=== PATIENT | male | born 1945 | race Caucasian/White ===

== ENCOUNTER → 2017-06-19 | Outpatient (CLI) | payer OTHER, MEDICARE ==
[~2017-06-19] MED LIST: AMOX TR-K CLV1 EACH PO; ASPIRIN325; COUMADIN 5 MG TA5 M1 PO; LIPITOR40 MG PO; METOPIRONE250 MG PO; MUCINEX600 MG; PRAVACHOL40 MG; TOPROL XL100 MG PO
== END ==
LOC: MRI 08:50
DX: M47.896 Other spondylosis, lumbar region (principal); M48.061 Spinal stenosis, lumbar region without neurogenic claudication

== ENCOUNTER 2017-10-10 13:49 | Emergency (ER) | payer OTHER, MEDICARE ==
[~2017-10-10] VITALS: Ht 167.6 cm; Wt 86.2 kg
[~2017-10-10 13:49] MED LIST changes: +AMOXICILLIN 50500 MG PO; -ASPIRIN325; +ASPIRIN325 PO; +COUMADIN 2.5MG2.5 M1 PO; +LISINOPRIL5 MG PO; -MUCINEX600 MG; +MUCINEX600 MG PO; +NASONEX17 GM NASAL; +NEURONTIN 300300 M1 PO; -PRAVACHOL40 MG; +PRAVACHOL40 MG PO
[2017-10-10 14:52] LABS: HEMOGLOBIN 14.8 gm/dL (14.0-18.0); MCH 32.9 pg (26.0-34.0); MCHC 34.4 g/dL (28.0-37.0); MCV 95.7 fL (80.0-100.0); RBC 4.49 mil/uL (4.50-6.00); RDW 13.1 % (10.5-14.5); WBC 3.7 thou/uL (4.0-11.0)
[2017-10-10 15:12] LABS: INR 2.5; PROTIME 25.4 Seconds (9.3-11.4)
[2017-10-10 15:54] VITALS: BP 176/66
[2017-11-11] MEDS ORDERED: NEURONTIN 300300 M1 PO (09:48)
[2017-11-28] MEDS ORDERED: NEURONTIN600 MG PO (09:24)
[2017-11-28] MEDS ORDERED: LOPRESSOR50 PO (09:25)
[2017-11-28] MEDS ORDERED: ENOXAPARIN60 MG/0.1 SUBQ (09:29)
== END 2017-10-10 15:56 | disposition home or self-care (01) ==
LOC: ER 13:49
PROVIDERS: Physician Assistant
DX: R04.0 Epistaxis (principal); Z87.891 Personal history of nicotine dependence

== ENCOUNTER 2017-10-27 10:19 | Inpatient (IN) | payer OTHER, MEDICARE ==
[~2017-10-27] VITALS: Ht 152.4 cm; Wt 59.0 kg
[2017-10-27 10:25] VITALS: BP 117/73
[2017-10-27] MEDS ORDERED: NEURONTIN600 MG PO (10:42)
[2017-10-27] MEDS ORDERED: VITAMINC500 PO (10:44)
[2017-10-27] MEDS ORDERED: FISH OIL PO (10:44)
[2017-10-27] MEDS ORDERED: CALCIUM PO (10:44)
[2017-10-27 10:53] LABS: ABSOLUTE NEUTROPHILS 8.8 thou/uL (1.4-8.2); BASOPHILS 0.5 % (0.0-2.0); EOSINOPHILS 0.9 % (0.0-3.0); HEMOGLOBIN 14.8 gm/dL (14.0-18.0); LYMPHOCYTES 6.4 % (24.0-44.0); MCH 33.3 pg (26.0-34.0); MCHC 35.1 g/dL (28.0-37.0); MCV 94.8 fL (80.0-100.0); MONOCYTES 9.9 % (1.0-8.0); PLATELET COUNT 180 thou/uL (150-400); POLYS 82.3 % (36.0-66.0); RBC 4.43 mil/uL (4.50-6.00); WBC 10.7 thou/uL (4.0-11.0)
[2017-10-27 10:56] LABS: CALCIUM 8.9 mg/dL (8.5-10.1); CREATININE 0.8 mg/dL (0.7-1.3); POTASSIUM 4.1 mmol/L (3.5-5.1)
[2017-10-27 11:01] LABS: ALBUMIN 3.4 g/dL (3.4-5.0); INR 2.7; PROTIME 27.4 Seconds (9.3-11.4); TOTAL BILIRUBIN 1.8 mg/dL (<0.1-1.0); TOTAL PROTEIN 7.7 g/dL (6.4-8.2)
[2017-10-27 11:32] LABS: URINE BILIRUBIN NEGATIVE (Negative); URINE BLOOD NEGATIVE (Negative); URINE CLARITY CLEAR; URINE COLOR YELLOW; URINE GLUCOSE-RANDOM* NEGATIVE (Negative); URINE KETONES TRACE (Negative); URINE LEUKOCYTES NEGATIVE (Negative); URINE NITRITE NEGATIVE (Negative); URINE PROTEIN (DIPSTICK) NEGATIVE (Negative); URINE SPECIFIC GRAVITY <= 1.005 (1.005-1.035); URINE UROBILINOGEN >= 8.0 E.U./dl (0.2-1.0)
[2017-10-27 13:22] VITALS: BP 137/58
[2017-10-27 13:45] VITALS: BP 137/58
[2017-10-27 15:20] VITALS: BP 122/55
[2017-10-27 19:15] VITALS: BP 145/63
[2017-10-28 06:13] LABS: HEMATOCRIT 40.7 % (42.0-52.0); MCH 32.9 pg (26.0-34.0); MCHC 34.4 g/dL (28.0-37.0); MCV 95.8 fL (80.0-100.0); RBC 4.25 mil/uL (4.50-6.00); RDW 13.1 % (10.5-14.5); WBC 7.7 thou/uL (4.0-11.0)
[2017-10-28 06:50] LABS: INR 2.2; PROTIME 21.9 Seconds (9.3-11.4)
[2017-10-28 07:49] VITALS: BP 144/80
[2017-10-28 16:22] VITALS: BP 168/71
[2017-10-28 19:56] VITALS: BP 152/79
[2017-10-29 04:19] VITALS: BP 166/84
[2017-10-29 08:00] VITALS: BP 189/95
[2017-10-29] MEDS ORDERED: AUGMENTIN 875-1 EACH PO (08:06)
[2017-10-29 09:31] LABS: HEMATOCRIT 41.6 % (42.0-52.0); HEMOGLOBIN 14.2 gm/dL (14.0-18.0); MCH 32.8 pg (26.0-34.0); MCHC 34.2 g/dL (28.0-37.0); MCV 95.9 fL (80.0-100.0); RBC 4.34 mil/uL (4.50-6.00); RDW 13.1 % (10.5-14.5); WBC 5.6 thou/uL (4.0-11.0)
[2017-10-29 09:41] LABS: INR 1.7; PROTIME 17.3 Seconds (9.3-11.4)
[2017-10-29 11:20] VITALS: BP 189/95
[2017-11-11] MEDS ORDERED: NEURONTIN 300300 M1 PO (09:48)
[2017-11-28] MEDS ORDERED: NEURONTIN600 MG PO (09:24)
[2017-11-28] MEDS ORDERED: LOPRESSOR50 PO (09:25)
[2017-11-28] MEDS ORDERED: ENOXAPARIN60 MG/0.1 SUBQ (09:29)
== END 2017-10-29 13:10 | disposition home or self-care (01) | DRG 393 ==
LOC: ER 10:19 → EROBS 12:44 → 4W 12:44 → ENTRNSPT 10-29 12:58 → EDTRNSPTSTS 10-29 12:59 → 4W 10-29 13:10
PROVIDERS: Family Medicine; Nurse Practitioner Family; Surgery
DX: K35.80 Unspecified acute appendicitis (principal); E43 Unspecified severe protein-calorie malnutrition; E87.1 Hypo-osmolality and hyponatremia; I10 Essential (primary) hypertension; E78.5 Hyperlipidemia, unspecified; E80.6 Other disorders of bilirubin metabolism; Z79.82 Long term (current) use of aspirin; Z79.899 Other long term (current) drug therapy; Z87.891 Personal history of nicotine dependence; Z95.2 Presence of prosthetic heart valve; Z68.25 Body mass index [BMI] 25.0-25.9, adult
CPT/HCPCS: 10045

== ENCOUNTER → 2017-11-11 | Outpatient (CLI) | payer OTHER, MEDICARE ==
[~2017-11-11] VITALS: Ht 157.5 cm; Wt 61.7 kg
[~2017-11-11] MED LIST changes: +ASPIRIN325; -ASPIRIN325 PO; +AUGMENTIN 875-1 EACH PO; +CALCIUM PO; +FISH OIL PO; +MUCINEX600 MG; -MUCINEX600 MG PO; +NEURONTIN600 MG PO; +PRAVACHOL40 MG; -PRAVACHOL40 MG PO; +VITAMINC500 PO
--- NOTE | ~2017-11-11 | HPC ---
[facility] [address] [place] [address] PAIN MANAGEMENT CONSULTATION Name: CHRISTO FLOWER [facility] #[id number] Admission: 11/11/17 Attend Phys: Carlos Owens DO Discharge: Date of : 41 Report #: [id number] THIS REPORT FOR: //name// CC: Carlos Jo MD DATE OF SERVICE: 11/11/2017 REFERRING PHYSICIAN: Sam Jo MD CHIEF COMPLAINT: Low back pain and bilateral lower extremity pain with paresthesias. HISTORY OF PRESENT ILLNESS: As you know, the patient is a 72-year-old male who began experiencing low back pain and bilateral lower extremity pain that presented in 04/2017. He denied injury or trauma that may have led to symptom development. He was seen in consultation per the request of Dr. Jo on 07/09/2017. At that time, he was diagnosed with symptomatic lumbar radiculopathy and spinal stenosis of the lumbar spine. The spinal stenosis is multifactorial due to facet changes, neural foraminal stenosis and disk bulging. We had to begin the patient on medication, which has been quite beneficial. He returns today in followup visit requesting refill of his gabapentin. Currently, he is taking 900 mg twice a day with good efficacy, no side effects of somnolence, decreased mental acuity, disorientation and confusion. He returns requesting refill on medications. ALLERGIES: No known drug allergies. CURRENT MEDICATIONS: Ascorbic acid, cyanocobalamin, gabapentin, montelukast sodium, lisinopril, warfarin, guaifenesin, pravastatin, metoprolol and aspirin. SOCIAL HISTORY: The patient denies tobacco, IV or illicit drug use. Admits to three alcoholic beverages per day. 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 He is unaccompanied today. IMAGING: No new imaging available. PQRS: The patient has known osteoarthritis. No rheumatoid arthritis. He rates the pain intensity today at 3/10. He is not a fall risk and has not had a fall in the last 3 months. He is on blood thinners in the form of warfarin. He is treated for hypertension. He has not been on opioids for an extended period of time. He has a moderate risk for opioid abuse. Functional assessment/pain interference scale is 34/70 indicating moderate interference. [address] [address] PAIN MANAGEMENT CONSULTATION Name: CHRISTO FLOWER Room #: REG LIZETTE Herrmann#: [id number] Admission: 11/11/17 Attend Phys: Carlos Owens DO Discharge: Date of : 41 Report #: [id number] PHYSICAL EXAMINATION: VITAL SIGNS: Blood pressure 121/88, pulse 62, respiratory rate 16 and unlabored, the patient 99% on room air. Height 5 feet 2 inches tall, weight 136 pounds and BMI calculated 24.9. GENERAL: Well-developed, well-nourished, well-hydrated, 72-year-old male. He appears stated age. Pain score is rated 3/10. HEENT: Normocephalic and atraumatic. Pupils are equal, round and reactive to light. EXTREMITIES: Show no clubbing, no cyanosis and no edema. MUSCULOSKELETAL: Lower extremity strength equal and symmetrical, 5/5, muscle bulk and tone equal and symmetrical. Seated straight leg raising is positive. Supine straight leg raising is positive. Fabere's test negative. Modified Gaenslen's positive for axial low back pain. Ankle clonus is negative. Babinski is negative. ASSESSMENT: 1. Symptomatic lumbar radiculopathy. 2. Spinal stenosis of the lumbar spine. 3. Displacement of the lumbar intervertebral disk with radiculopathy. 4. Lumbosacral spondylosis with radiculopathy. 5. Neural foraminal stenosis of the lumbar spine. 6. Facet arthropathy of the lumbar spine. 7. Degeneration of the lumbar spine. 8. Chronic intractable pain. PLAN: 1. The patient returns today in followup visit noting good efficacy with gabapentin therapy. He takes 900 mg twice a day and does note good and prolonged benefit. He apparently stopped his gabapentin for a couple of days during a hospitalization for appendicitis. He noted pain intensity returned. He restarted the gabapentin. His pain intensity dropped to a level of 3/10, which is tolerable for him. He is denying side effects of somnolence, decrease mental acuity, disorientation, confusion with the use of medication and wishes to continue therapy. 2. The patient was provided prescription of gabapentin 300 mg dose 3 tabs p.o. b.i.d., #180 with 5 refills, 6 months' worth of medication. 3. The patient will return to our clinic on an as needed basis for possible interventional treatments to address any residual lumbar radicular symptoms secondary to spinal stenosis. Otherwise, we will see him back in followup visit in 6 months for medication management. By: 1021 1230 Carlos Owens DO /nt
[2017-11-11 09:36] VITALS: BP 121/88
== END ==
LOC: PAIN 10-28 14:15
DX: M47.27 Other spondylosis with radiculopathy, lumbosacral region (principal); G89.29 Other chronic pain

== ENCOUNTER → 2017-11-18 | Outpatient (CLI) | payer OTHER, MEDICARE ==
[2017-11-18 09:20] LABS: CREATININE 0.7 mg/dL (0.7-1.3)
== END ==
LOC: CAT 05:55
PROVIDERS: Surgery
DX: K37 Unspecified appendicitis (principal); K44.9 Diaphragmatic hernia without obstruction or gangrene

== ENCOUNTER 2017-12-01 05:31 | Observation (INO) | payer OTHER, MEDICARE ==
[~2017-12-01] VITALS: Ht 157.5 cm; Wt 61.2 kg
[~2017-12-01 05:31] MED LIST changes: -ASPIRIN325; +ASPIRIN325 PO; +ENOXAPARIN60 MG/0.1 SUBQ; +LOPRESSOR50 PO; -MUCINEX600 MG; +MUCINEX600 MG PO; -PRAVACHOL40 MG; +PRAVACHOL40 MG PO
[2017-12-01 07:17] LABS: HEMATOCRIT 39.4 % (42.0-52.0); HEMOGLOBIN 13.5 gm/dL (14.0-18.0)
[2017-12-01 07:32] LABS: APTT 28.6 Seconds (24.5-32.8); PROTIME 10.3 Seconds (9.3-11.4)
[2017-12-01 07:38] VITALS: BP 150/70
[2017-12-01 11:30] VITALS: BP 143/62
[2017-12-01 16:00] VITALS: BP 167/63
[2017-12-01 19:05] VITALS: BP 160/66
[2017-12-02 03:07] VITALS: BP 145/60
[2017-12-02 07:22] VITALS: BP 124/63
[2017-12-02] MEDS ORDERED: FLOMAX0.4 MG PO (08:35)
[2017-12-02] MEDS ORDERED: ZOFRAN4 MG PO (08:35)
[2017-12-02] MEDS ORDERED: HYDROCODON-ACE1 EAC7 PO (08:35)
[2017-12-02 10:02] VITALS: BP 124/63
== END 2017-12-02 14:53 | disposition home or self-care (01) ==
LOC: OR 05:31 → TBA 05:31 → 4W 11:27 → OR 11:56 → ENTRNSPT 12-02 13:41 → EDTRNSPTSTS 12-02 13:43 → 4W 12-02 14:53
PROVIDERS: Surgery
DX: K35.80 Unspecified acute appendicitis (principal); E78.5 Hyperlipidemia, unspecified; R33.9 Retention of urine, unspecified; G47.30 Sleep apnea, unspecified; Z86.73 Personal history of transient ischemic attack (TIA), and cerebral infarction without residual deficits; Z87.891 Personal history of nicotine dependence
CPT/HCPCS: 50010; 50101; 50249; 50411; 50555; 50558; 50739; 50740; 50962; 51975; 52265; 53307; 53310; 54022; 54118; 56525; 56526; 62110; 62900; 70005

== ENCOUNTER 2018-02-18 07:05 | Emergency (ER) | payer OTHER, MEDICARE ==
[~2018-02-18] VITALS: Ht 157.5 cm; Wt 59.0 kg
[~2018-02-18 07:05] MED LIST changes: +FLOMAX0.4 MG PO; +HYDROCODON-ACE1 EAC7 PO; +ZOFRAN4 MG PO
[2018-02-18 07:58] LABS: HEMOGLOBIN 13.9 gm/dL (14.0-18.0); MCH 33.4 pg (26.0-34.0); MCHC 34.8 g/dL (28.0-37.0); RBC 4.17 mil/uL (4.50-6.00); WBC 4.1 thou/uL (4.0-11.0)
[2018-02-18 08:15] LABS: INR 3.8
== END 2018-02-18 08:42 | disposition home or self-care (01) ==
LOC: ER 07:05
PROVIDERS: Emergency Medicine
DX: K91.840 Postprocedural hemorrhage of a digestive system organ or structure following a digestive system procedure (principal); I10 Essential (primary) hypertension; E78.5 Hyperlipidemia, unspecified; E78.00 Pure hypercholesterolemia, unspecified; G47.30 Sleep apnea, unspecified; Z85.828 Personal history of other malignant neoplasm of skin; Z87.891 Personal history of nicotine dependence

== ENCOUNTER 2018-05-19 16:24 | Emergency (ER) | payer OTHER, MEDICARE ==
[~2018-05-19] VITALS: Ht 157.5 cm; Wt 59.9 kg
[2018-05-19] MEDS ORDERED: CAL-MAG COMPLE1 EACH PO (16:43)
[2018-05-19] MEDS ORDERED: NORFLEX100 MG PO (17:58)
== END 2018-05-19 18:12 | disposition home or self-care (01) ==
LOC: ER 16:24
DX: R07.89 Other chest pain (principal); M25.571 Pain in right ankle and joints of right foot; I10 Essential (primary) hypertension; E78.00 Pure hypercholesterolemia, unspecified; G47.30 Sleep apnea, unspecified; Z79.01 Long term (current) use of anticoagulants; Z85.828 Personal history of other malignant neoplasm of skin; Z79.899 Other long term (current) drug therapy; Z87.891 Personal history of nicotine dependence; V49.09XA Driver injured in collision with other motor vehicles in nontraffic accident, initial encounter; Y93.89 Activity, other specified; Y92.410 Unspecified street and highway as the place of occurrence of the external cause; Y99.8 Other external cause status

== ENCOUNTER 2018-08-10 07:03 | Emergency (ER) | payer OTHER, MEDICARE ==
[~2018-08-10] VITALS: Ht 157.5 cm; Wt 61.2 kg
[~2018-08-10 07:03] MED LIST changes: +CAL-MAG COMPLE1 EACH PO; +NORFLEX100 MG PO
[2018-08-10 07:45] LABS: HEMATOCRIT 41.1 % (42.0-52.0); HEMOGLOBIN 14.2 gm/dL (14.0-18.0); MCH 32.9 pg (26.0-34.0); MCHC 34.7 g/dL (28.0-37.0); MCV 94.9 fL (80.0-100.0); PLATELET COUNT 193 thou/uL (150-400); RBC 4.33 mil/uL (4.50-6.00); RDW 13.8 % (10.5-14.5); WBC 5.9 thou/uL (4.0-11.0)
[2018-08-10 07:48] LABS: CALCIUM 8.9 mg/dL (8.5-10.1); CREATININE 0.8 mg/dL (0.7-1.3); POTASSIUM 4.2 mmol/L (3.5-5.1)
[2018-08-10 07:54] LABS: URINE BILIRUBIN NEGATIVE (Negative); URINE BLOOD NEGATIVE (Negative); URINE CLARITY CLEAR; URINE COLOR YELLOW; URINE GLUCOSE-RANDOM* NEGATIVE (Negative); URINE KETONES 1+ (Negative); URINE NITRITE-REFLEX NEGATIVE (Negative); URINE PROTEIN (DIPSTICK) NEGATIVE (Negative); URINE UROBILINOGEN 0.2 E.U./dl (0.2-1.0)
[2018-08-10 07:54] LABS: ALBUMIN 3.6 g/dL (3.4-5.0); TOTAL PROTEIN 7.2 g/dL (6.4-8.2)
[2018-08-10 07:55] LABS: URINE LEUKOCYTES-REFLEX NEGATIVE (Negative)
[2018-08-10 08:32] LABS: ABSOLUTE NEUTROPHILS 4.7 thou/uL (1.4-8.2); ANISOCYTOSIS SLIGHT; INR 3.4; PROTIME 35.4 Seconds (9.3-11.4)
[2018-08-10] MEDS ORDERED: ZOFRAN ODT4 MG PO (09:38)
[2018-08-10 09:50] VITALS: BP 181/78
== END 2018-08-10 09:50 | disposition home or self-care (01) ==
LOC: ER 07:03
PROVIDERS: Emergency Medicine
DX: K52.9 Noninfective gastroenteritis and colitis, unspecified (principal); I10 Essential (primary) hypertension; E78.00 Pure hypercholesterolemia, unspecified; M48.00 Spinal stenosis, site unspecified; G47.30 Sleep apnea, unspecified; Z85.828 Personal history of other malignant neoplasm of skin; Z87.891 Personal history of nicotine dependence

== ENCOUNTER → 2018-09-08 | Outpatient (CLI) | payer OTHER, MEDICARE ==
[~2018-09-08] VITALS: Ht 157.5 cm; Wt 60.3 kg
[~2018-09-08] MED LIST changes: +OMEGA-31000 M1 PO; +ZOFRAN ODT4 MG PO
[2018-09-08 10:37] VITALS: BP 160/70
--- NOTE | 2018-09-08 10:46 | NUR ---
Pain Clinic Assessment: 1. History of Osteoarthritis: Not Applicable History of Rheumatoid Arthritis: Not Applicable 2. Height: 5 ft. 2 in. 157.5 cm. Weight: 133.0 lb. oz. 60.328 kg. Patient's BMI: 24.3 3. Vital Signs: BP: 160/70 Pulse: 79 Resp: 16 Temp: 02 Sat: 99 ECG Mon: 4. Pain Intensity: 0 5. Fall Risk: Dizziness: N Needs help standing or walking: N Fallen in the last 3 months: N Fall risk comments: 6. Patient on Blood Thinner: Warfarin (Coumadin) 7. History of Hypertension: Y 8. Opioid Therapy greater than 6 weeks: N Opiate Contract Signed: 9. Risk Assessment Tool Provided: MODERATE RISK 01/08 10. Functional Assessment Tool: 11. Recreational Drug Use: Never Drug Type: Tobacco Use: Former Smoker Tobacco Type: Amount or Packs/day: How Many Years: Alcohol Use: Yes Frequency: Quant:
--- NOTE | 2018-09-09 07:21 | HPC ---
[facility] [address] [place] [address] PAIN MANAGEMENT CONSULTATION Name: CHRISTO FLOWER Room #: REG Rosario Herrmann#: [id number] Admission: 09/08/18 Attend Phys: Sofya Lutz Discharge: Date of : 41 Report #: [id number] THIS REPORT FOR: //name// CC: Sofya Lutz Sam Jo DATE OF SERVICE: 09/08/2018 CHIEF COMPLAINT: Low back pain with bilateral lower extremity pain and paresthesias. HISTORY OF PRESENT ILLNESS: This is a very pleasant 73-year-old gentleman who returns to the pain clinic today for refill of his gabapentin. The patient proceeds to tell me that he thought he had refills left. When he attempted to have those refilled at the pharmacy, he was told he needed an appointment. So he made an appointment for today. He has been out of his medicines for about 10 days. He tells me that he has no pain today, 0, and has not had any pain since he has stopped his gabapentin. Prior to stopping it 10 days ago, he was taking gabapentin 300 mg capsules 2 in the morning and 2 at night. He tells me that it was for his leg pain, but none of them have been bothering him. So, he is wondering if he is able to stay off of that or if he needs to continue this medication. ALLERGIES: No known drug allergies. MEDICATIONS: Current list of medications: [place] 3 daily, calcium complex daily, Lopressor 50 mg at bedtime, gabapentin 300 mg b.i.d., vitamin C daily, Nasonex as needed, lisinopril 5 mg daily, Coumadin 2.5 mg daily, Mucinex as needed, pravastatin 40 mg daily, metoprolol 100 mg daily and aspirin 325 mg daily. PQRS: 1. He has some known osteoarthritis. No rheumatoid arthritis. 2. Height is 5 feet 2 inches, weight is 130 and BMI is 24. 3. Vital signs 160/70, pulse is 79, respirations 16, oxygen sat is 99. Pain score is 0. 4. Fall risk. He denies dizziness. He has not fallen in the last 3 months. 5. He does take Coumadin for a blood thinner, hypertension medicines for his hypertension. The patient does not take any opioids and does not have an opioid signed contract on the chart. His risk assessment tool is moderate and his functional assessment is 27. 6. Recreational drug use, he denies. He is a former smoker and occasionally drinks some alcohol. We did check prescription monitoring system. The patient filled a narcotic last year, but we do not have him on a daily narcotic. So, no drug screen [place] [address] PAIN MANAGEMENT CONSULTATION Name: CHRISTO FLOWER Room #: SHAAN Herrmann#: [id number] Admission: 09/08/18 Attend Phys: Sofya Lutz Discharge: Date of : 41 Report #: [id number] PHYSICAL EXAMINATION: GENERAL: This is a well-developed, well-nourished and well-hydrated 73-year-old gentleman, who appears his stated age, placing his pain score a 0/10. HEENT: Normocephalic, atraumatic. Pupils round and reactive to light. EXTREMITIES: Show no clubbing, no cyanosis and no edema. MUSCULOSKELETAL: Lower extremity strength is equal and symmetrical 5/5 in muscle bulk and tone. The patient denies any numbness and tingling in his leg. He walks with a slight antalgic gait. ASSESSMENT: 1. Symptomatic lumbar radiculopathy. 2. Spinal stenosis of the lumbar spine. 3. Lumbosacral spondylosis with radiculopathy. 4. Neural foraminal stenosis of the lumbar spine. 5. Facet arthroscopy of the lumbar spine, chronic intractable pain. PLAN: 1. We discussed treatment options with the patient today. He tells me that at first when he started gabapentin, he was unable to tolerate 3 tablets twice a day, so he decreased to 2 twice a day, had done quite well on this medication, noticing that his pain was being treated with this medication. He ran out about 10 days ago and needed a refill of his medications. He has not experienced any pain in his leg or numbness and tingling since he has been off his gabapentin. We decided today that it was fine for him to stop and stay off of his gabapentin for the time being. I explained to him that a lot of times we keep people on the medicines for a certain amount of time and then try and wean off and see if their pain returns, then we increase it; if it does not return, then we try to take them off using the lowest most effective dose or no medicines at all. The patient is agreeable with this plan of care. He will call us if he needs to restart the medicine due to pain returning in his low back and leg. 2. I have instructed the nurse to put a note on the chart that we are able to call his medicine into [facility] 2 tablets twice a day of his gabapentin of 300. The patient will then increase slowly, taking the lowest most effective dose, possibly one tablet a day or one tablet b.i.d. The patient is seen today in collaboration with Dr. Carlos Owens. <ELECTRONICALLY SIGNED> By: Sofya Lutz 09/09/18 0721 1122 [id number] Sofya Lutz /nataliia
== END ==
LOC: PAIN 06:51
DX: M47.27 Other spondylosis with radiculopathy, lumbosacral region (principal); M48.062 Spinal stenosis, lumbar region with neurogenic claudication; G89.4 Chronic pain syndrome; M12.88 Other specific arthropathies, not elsewhere classified, other specified site; Z79.899 Other long term (current) drug therapy

== ENCOUNTER → 2018-12-15 | Outpatient (CLI) | payer OTHER, MEDICARE ==
[~2018-12-15] VITALS: Ht 157.5 cm; Wt 59.0 kg
[~2018-12-15] MED LIST changes: +FLONASE 0.05%50 MCG NASAL
[2018-12-15 07:48] VITALS: BP 131/54
--- NOTE | 2018-12-15 09:22 | NUR ---
Pt awake and resting well. Talking with at bedside. No concerns voiced at this time. BP 105/46, HR 64 SR WITH PVCs, O2 98% ON ROOM AIR. Continuing to monitor.
--- NOTE | 2018-12-15 12:24 | TEE ---
[facility] [place] [address] TRANSESOPHAGEAL ECHOCARDIOGRAM Name: CHRISTO FLOWER Room #: REG [facility]#: [id number] ������������� Admission: 12/15/18 ������������� Attend Phys: Jean Rolle, Discharge: ��� ������������� ��� Date of : 41 Date of Service: 12/15/18 1224 �� Report #: [id number] �������� ��������������������������������������������[id number] THIS REPORT FOR: //name// APPROVED REPORT Study performed: 12/15/2018 08:05:15 EXAM: Comprehensive 2D, Doppler, and color-flow Echocardiogram Patient Location: [employer] Room #: 9 Status: routine BSA: 1.59 HR: 76 bpm BP: 120/48 mmHg Rhythm: NSR Other Information Study Quality: Good Indications Aortic Valve Disease Echo Enhancing Agent Indication: Rule out Shunt Agent(s) / Amount(s) Used: Agitated Saline 7 cc Aortic Valve AoV Peak Brady.: 4.34 m/s AO Peak Gr.: 75.37 mmHg AO Mean Gr.: 43.38 mmHg AO V2 Mean: 3.15 m/s AO V2 VTI: 104.49 cm Procedure After obtaining informed consent, patient underwent transesophageal echo in the [employer]. Type of Sedation : Conscious Sedation Sedation was administered by Grisel Soto RN. Sedation was achieved intravenously with: Versed (3 mg) Fentanyl (50 mcg) Transesophageal probe was inserted and advanced into esophagus without difficulty by Jean Rolle MD. Echo enhancement indication: R/O Septal defect. Echo enhancement agent administered: Agitated Saline [facility] [place] [address] TRANSESOPHAGEAL ECHOCARDIOGRAM Name: CHRISTO FLOWER Room #: REG [facility]#: [id number] ������������� Admission: 12/15/18 ������������� Attend Phys: Jean Rolle, Discharge: ��� ������������� ��� Date of : 41 Date of Service: 12/15/18 1224 �� Report #: [id number] �������� ��������������������������������������������[id number] The JENNIFER was performed without complications. Throughout the procedure, the blood pressure, pulse oximetry, cardiac rhythm, and rate were monitored. The patient tolerated the procedure without adverse effects. Recovery from conscious sedation was uneventful and vital signs were stable. Left Ventricle The left ventricle is normal size. There is normal LV segmental wall motion. Mild concentric left ventricular hypertrophy. The left ventricular systolic function is normal. The left ventricular ejection fraction is within the normal range. LVEF is 60-65%. Right Ventricle The right ventricle is normal size. The right ventricular systolic function is normal. Atria The left atrium size is mildly enlarged No thrombus is visualized in the left atrium or appendage. Patent foramen ovale with shunting is present. The right atrium size is mildly enlarged Aortic Valve Mechanical aortic St. Stanley prosthesis; leaflet mobility appears resticted. Moderate aortic regurgitation. Moderate to severe aortic stenosis (peak gradient 75 mm, mean gradient 43 mm) Mitral Valve The mitral valve is normal in structure. Mild mitral regurgitation. No evidence of mitral valve stenosis. Tricuspid Valve The tricuspid valve is normal in structure. Mild tricuspid regurgitation. Pulmonic Valve Pulmonic valve is not well visualized. Great Vessels The aortic root is normal in size. The ascending aorta is normal in size. Prosthetic conduit, ascending aorta. IVC is normal in size and collapses >50% with inspiration. Pericardium There is no pericardial effusion. [facility] [address] [address] TRANSESOPHAGEAL ECHOCARDIOGRAM Name: CHRISTO FLOWER Room #: [facility]#: [id number] ������������� Admission: 12/15/18 ������������� Attend Phys: Jean Rolle, Discharge: ��� ������������� ��� Date of : 41 Date of Service: 12/15/18 1224 �� Report #: [id number] �������� ��������������������������������������������[id number] <Conclusion> The left ventricular systolic function is normal. There is normal LV segmental wall motion. LVEF is 60-65%. Mild biatrial enlargement No thrombus is visualized in the left atrium or appendage. Patent foramen ovale with shunting is present. Mechanical aortic St. Stanley prosthesis; leaflet mobility appears resticted. Stenotic Moderate to severe aortic stenosis (peak gradient 75 mm, mean gradient 43 mm) Moderate aortic regurgitation. The mitral valve is normal in structure. Mild mitral regurgitation. The ascending aorta is normal in size. Prosthetic conduit, ascending aorta. There is no pericardial effusion. ��������������������������������������������� <ELECTRONICALLY SIGNED> ���������������������������������������� By: Jean Rolle MD, [facility] ��������������������������������������������� 12/15/18 1224 1224 1224 Jean Rolle MD, [facility] /INF
== END | disposition home or self-care (01) ==
LOC: CATH 07:06
DX: I08.0 Rheumatic disorders of both mitral and aortic valves (principal); I10 Essential (primary) hypertension; Z87.891 Personal history of nicotine dependence; Z79.01 Long term (current) use of anticoagulants; Z95.2 Presence of prosthetic heart valve; Z82.49 Family history of ischemic heart disease and other diseases of the circulatory system; Z86.73 Personal history of transient ischemic attack (TIA), and cerebral infarction without residual deficits; E78.00 Pure hypercholesterolemia, unspecified; Z85.828 Personal history of other malignant neoplasm of skin; Z98.890 Other specified postprocedural states; Z79.82 Long term (current) use of aspirin; Z79.899 Other long term (current) drug therapy

== ENCOUNTER → 2019-08-17 | Outpatient (CLI) | payer OTHER, MEDICARE | LOC: SJCVC 10:20 | DX: Z51.81 Encounter for therapeutic drug level monitoring (principal); Z79.01 Long term (current) use of anticoagulants ==

== ENCOUNTER → 2019-08-31 | Outpatient (CLI) | payer OTHER, MEDICARE | LOC: SJCVC 09:59 | DX: Z79.01 Long term (current) use of anticoagulants (principal); I10 Essential (primary) hypertension; E78.5 Hyperlipidemia, unspecified; G47.30 Sleep apnea, unspecified; Z51.81 Encounter for therapeutic drug level monitoring ==

== ENCOUNTER → 2019-09-08 | Outpatient (CLI) | payer OTHER, MEDICARE | LOC: SJCVC 14:04 | DX: Z51.81 Encounter for therapeutic drug level monitoring (principal); I10 Essential (primary) hypertension; E78.5 Hyperlipidemia, unspecified; Z95.2 Presence of prosthetic heart valve; Z79.01 Long term (current) use of anticoagulants ==

== ENCOUNTER → 2019-09-14 | Outpatient (CLI) | payer OTHER, MEDICARE | LOC: SJCVC 10:19 | DX: Z51.81 Encounter for therapeutic drug level monitoring (principal); E78.5 Hyperlipidemia, unspecified; G47.33 Obstructive sleep apnea (adult) (pediatric); I10 Essential (primary) hypertension; Z95.2 Presence of prosthetic heart valve; Z72.89 Other problems related to lifestyle; Z79.01 Long term (current) use of anticoagulants; Z79.82 Long term (current) use of aspirin; Z79.899 Other long term (current) drug therapy ==

== ENCOUNTER → 2019-09-21 | Outpatient (CLI) | payer OTHER, MEDICARE | LOC: SJCVCIMAG 09:12 | DX: I08.2 Rheumatic disorders of both aortic and tricuspid valves (principal); I44.0 Atrioventricular block, first degree; R94.31 Abnormal electrocardiogram [ECG] [EKG]; I63.19 Cerebral infarction due to embolism of other precerebral artery; T82.857A Stenosis of other cardiac prosthetic devices, implants and grafts, initial encounter; I47.1 Supraventricular tachycardia; I71.2 Thoracic aortic aneurysm, without rupture; I10 Essential (primary) hypertension; E78.5 Hyperlipidemia, unspecified; G47.33 Obstructive sleep apnea (adult) (pediatric); Z79.01 Long term (current) use of anticoagulants; Z79.899 Other long term (current) drug therapy ==

== ENCOUNTER → 2019-09-28 | Outpatient (CLI) | payer OTHER, MEDICARE | LOC: SJCVC 09:33 | DX: Z51.81 Encounter for therapeutic drug level monitoring (principal); E78.5 Hyperlipidemia, unspecified; I10 Essential (primary) hypertension; G47.30 Sleep apnea, unspecified; Z95.2 Presence of prosthetic heart valve; Z87.891 Personal history of nicotine dependence; Z86.73 Personal history of transient ischemic attack (TIA), and cerebral infarction without residual deficits; Z72.89 Other problems related to lifestyle; Z79.82 Long term (current) use of aspirin; Z79.899 Other long term (current) drug therapy; Z79.01 Long term (current) use of anticoagulants ==

== ENCOUNTER → 2019-10-07 | Outpatient (CLI) | payer OTHER, MEDICARE | LOC: SJCVC 10:09 | DX: Z51.81 Encounter for therapeutic drug level monitoring (principal); G47.30 Sleep apnea, unspecified; I10 Essential (primary) hypertension; Z87.891 Personal history of nicotine dependence; Z85.53 Personal history of malignant neoplasm of renal pelvis; Z86.73 Personal history of transient ischemic attack (TIA), and cerebral infarction without residual deficits; Z95.2 Presence of prosthetic heart valve; Z79.01 Long term (current) use of anticoagulants; Z79.82 Long term (current) use of aspirin; Z79.899 Other long term (current) drug therapy ==

== ENCOUNTER → 2019-10-26 | Outpatient (CLI) | payer OTHER, MEDICARE | LOC: SJCVC 09:58 | DX: Z51.81 Encounter for therapeutic drug level monitoring (principal); I10 Essential (primary) hypertension; E78.5 Hyperlipidemia, unspecified; Z68.23 Body mass index [BMI] 23.0-23.9, adult; Z79.01 Long term (current) use of anticoagulants; Z79.899 Other long term (current) drug therapy ==

== ENCOUNTER → 2019-11-04 | Outpatient (CLI) | payer OTHER, MEDICARE | LOC: SJCVC 10:03 | PROVIDERS: ATTEND Internal Medicine Cardiovascular Disease | DX: Z51.81 Encounter for therapeutic drug level monitoring (principal); I10 Essential (primary) hypertension; E78.5 Hyperlipidemia, unspecified; Z79.01 Long term (current) use of anticoagulants ==

== ENCOUNTER → 2019-11-18 | Outpatient (CLI) | payer OTHER, MEDICARE | LOC: SJCVC 10:44 | DX: Z51.81 Encounter for therapeutic drug level monitoring (principal); E78.5 Hyperlipidemia, unspecified; G47.30 Sleep apnea, unspecified; I10 Essential (primary) hypertension; Z95.2 Presence of prosthetic heart valve; Z79.01 Long term (current) use of anticoagulants; Z87.891 Personal history of nicotine dependence; Z72.89 Other problems related to lifestyle ==

== ENCOUNTER → 2019-12-16 | Outpatient (CLI) | payer OTHER, MEDICARE | LOC: SJCVC 10:12 | DX: Z51.81 Encounter for therapeutic drug level monitoring (principal); I10 Essential (primary) hypertension; E78.5 Hyperlipidemia, unspecified; Z79.01 Long term (current) use of anticoagulants; Z79.82 Long term (current) use of aspirin; Z79.899 Other long term (current) drug therapy ==

== ENCOUNTER → 2020-01-13 | Outpatient (CLI) | payer OTHER, MEDICARE | LOC: SJCVC 10:07 | PROVIDERS: ATTEND Internal Medicine | DX: Z51.81 Encounter for therapeutic drug level monitoring (principal); I10 Essential (primary) hypertension; E78.5 Hyperlipidemia, unspecified; Z68.23 Body mass index [BMI] 23.0-23.9, adult; Z79.2 Long term (current) use of antibiotics; Z79.01 Long term (current) use of anticoagulants ==

== ENCOUNTER → 2020-02-10 | Outpatient (CLI) | payer OTHER, MEDICARE | LOC: SJCVC 10:11 | PROVIDERS: ATTEND Internal Medicine | DX: Z51.81 Encounter for therapeutic drug level monitoring (principal); I10 Essential (primary) hypertension; G47.30 Sleep apnea, unspecified; E78.5 Hyperlipidemia, unspecified; Z95.2 Presence of prosthetic heart valve; Z68.23 Body mass index [BMI] 23.0-23.9, adult; Z79.01 Long term (current) use of anticoagulants ==

== ENCOUNTER → 2020-03-09 | Outpatient (CLI) | payer OTHER, MEDICARE | LOC: SJCVC 11:22 | PROVIDERS: ATTEND Internal Medicine | DX: Z51.81 Encounter for therapeutic drug level monitoring (principal); I10 Essential (primary) hypertension; E78.5 Hyperlipidemia, unspecified; Z68.23 Body mass index [BMI] 23.0-23.9, adult; Z95.2 Presence of prosthetic heart valve; Z79.01 Long term (current) use of anticoagulants; Z79.899 Other long term (current) drug therapy; Z86.73 Personal history of transient ischemic attack (TIA), and cerebral infarction without residual deficits ==

== ENCOUNTER → 2020-03-16 | Outpatient (CLI) | payer OTHER, MEDICARE | LOC: SJCVC 10:28 | PROVIDERS: ATTEND Internal Medicine | DX: Z51.81 Encounter for therapeutic drug level monitoring (principal); I10 Essential (primary) hypertension; E78.5 Hyperlipidemia, unspecified; Z79.01 Long term (current) use of anticoagulants; Z95.2 Presence of prosthetic heart valve; Z79.899 Other long term (current) drug therapy ==

== ENCOUNTER → 2020-03-30 | Outpatient (CLI) | payer OTHER, MEDICARE | LOC: SJCVC 13:21 | PROVIDERS: ATTEND Internal Medicine | DX: R94.31 Abnormal electrocardiogram [ECG] [EKG] (principal); I71.2 Thoracic aortic aneurysm, without rupture; T82.857A Stenosis of other cardiac prosthetic devices, implants and grafts, initial encounter; I47.1 Supraventricular tachycardia; I10 Essential (primary) hypertension; E78.5 Hyperlipidemia, unspecified; I63.19 Cerebral infarction due to embolism of other precerebral artery; G47.33 Obstructive sleep apnea (adult) (pediatric); Z79.01 Long term (current) use of anticoagulants; Z79.899 Other long term (current) drug therapy; Z87.891 Personal history of nicotine dependence; Y83.8 Other surgical procedures as the cause of abnormal reaction of the patient, or of later complication, without mention of misadventure at the time of the procedure; Y92.89 Other specified places as the place of occurrence of the external cause ==

== ENCOUNTER → 2020-04-06 | Outpatient (CLI) | payer OTHER, MEDICARE | LOC: SJCVC 10:15 | PROVIDERS: ATTEND Internal Medicine | DX: Z51.81 Encounter for therapeutic drug level monitoring (principal); I10 Essential (primary) hypertension; Z90.49 Acquired absence of other specified parts of digestive tract; Z95.4 Presence of other heart-valve replacement; Z79.01 Long term (current) use of anticoagulants ==

== ENCOUNTER → 2020-04-12 | Outpatient (CLI) | payer OTHER, MEDICARE | LOC: SJCVC 14:15 | PROVIDERS: ATTEND Internal Medicine | DX: Z51.81 Encounter for therapeutic drug level monitoring (principal); I10 Essential (primary) hypertension; E78.5 Hyperlipidemia, unspecified; Z95.2 Presence of prosthetic heart valve; Z68.23 Body mass index [BMI] 23.0-23.9, adult; Z79.01 Long term (current) use of anticoagulants; Z79.899 Other long term (current) drug therapy; Z86.73 Personal history of transient ischemic attack (TIA), and cerebral infarction without residual deficits ==

== ENCOUNTER → 2020-04-20 | Outpatient (CLI) | payer OTHER, MEDICARE | LOC: SJCVC 11:39 | PROVIDERS: ATTEND Internal Medicine | DX: Z51.81 Encounter for therapeutic drug level monitoring (principal); I35.1 Nonrheumatic aortic (valve) insufficiency; E78.5 Hyperlipidemia, unspecified; G47.30 Sleep apnea, unspecified; I10 Essential (primary) hypertension; Z79.01 Long term (current) use of anticoagulants; Z90.49 Acquired absence of other specified parts of digestive tract; Z98.890 Other specified postprocedural states; Z87.891 Personal history of nicotine dependence; Z82.49 Family history of ischemic heart disease and other diseases of the circulatory system ==

== ENCOUNTER → 2020-04-27 | Outpatient (CLI) | payer OTHER, MEDICARE | LOC: SJCVC 08:48 | PROVIDERS: ATTEND Internal Medicine | DX: Z51.81 Encounter for therapeutic drug level monitoring (principal); Z79.01 Long term (current) use of anticoagulants ==

== ENCOUNTER → 2020-05-11 | Outpatient (CLI) | payer OTHER, MEDICARE | LOC: SJCVC 11:30 | PROVIDERS: ATTEND Internal Medicine | DX: Z51.81 Encounter for therapeutic drug level monitoring (principal); Z87.891 Personal history of nicotine dependence ==

== ENCOUNTER → 2020-06-08 | Outpatient (CLI) | payer OTHER, MEDICARE | LOC: SJCVC 09:50 | PROVIDERS: ATTEND Internal Medicine | DX: Z51.81 Encounter for therapeutic drug level monitoring (principal); Z79.01 Long term (current) use of anticoagulants; Z79.899 Other long term (current) drug therapy ==

== ENCOUNTER → 2020-06-15 | Outpatient (CLI) | payer OTHER, MEDICARE | LOC: SJCVC 14:06 | PROVIDERS: ATTEND Internal Medicine | DX: Z51.81 Encounter for therapeutic drug level monitoring (principal); I10 Essential (primary) hypertension; G47.30 Sleep apnea, unspecified; E78.5 Hyperlipidemia, unspecified; Z79.01 Long term (current) use of anticoagulants; Z68.23 Body mass index [BMI] 23.0-23.9, adult; Z79.899 Other long term (current) drug therapy ==

== ENCOUNTER → 2020-06-27 | Outpatient (CLI) | payer OTHER, MEDICARE | LOC: SJCVC 10:22 | PROVIDERS: ATTEND Internal Medicine | DX: Z51.81 Encounter for therapeutic drug level monitoring (principal); Z79.01 Long term (current) use of anticoagulants ==

== ENCOUNTER → 2020-07-18 | Outpatient (CLI) | payer OTHER, MEDICARE | LOC: SJCVC 11:22 | PROVIDERS: ATTEND Internal Medicine | DX: Z51.81 Encounter for therapeutic drug level monitoring (principal); I10 Essential (primary) hypertension; E78.5 Hyperlipidemia, unspecified; G47.30 Sleep apnea, unspecified; Z95.2 Presence of prosthetic heart valve; Z79.01 Long term (current) use of anticoagulants; Z79.899 Other long term (current) drug therapy; Z68.23 Body mass index [BMI] 23.0-23.9, adult ==

== ENCOUNTER → 2020-08-15 | Outpatient (CLI) | payer OTHER, MEDICARE | LOC: SJCVC 10:10 | PROVIDERS: ATTEND Internal Medicine | DX: Z51.81 Encounter for therapeutic drug level monitoring (principal); Z79.01 Long term (current) use of anticoagulants; Z79.82 Long term (current) use of aspirin; Z95.2 Presence of prosthetic heart valve; Z87.891 Personal history of nicotine dependence ==

== ENCOUNTER → 2020-09-12 | Outpatient (CLI) | payer OTHER, MEDICARE | LOC: SJCVC 10:12 | PROVIDERS: ATTEND Internal Medicine | DX: Z51.81 Encounter for therapeutic drug level monitoring (principal); Z79.01 Long term (current) use of anticoagulants; Z79.82 Long term (current) use of aspirin; Z79.899 Other long term (current) drug therapy; Z87.891 Personal history of nicotine dependence; Z72.89 Other problems related to lifestyle; Z95.4 Presence of other heart-valve replacement; Z90.89 Acquired absence of other organs; Z98.890 Other specified postprocedural states ==

== ENCOUNTER → 2020-09-21 | Outpatient (CLI) | payer OTHER, MEDICARE | LOC: SJCVC 10:14 | PROVIDERS: ATTEND Internal Medicine | DX: Z51.81 Encounter for therapeutic drug level monitoring (principal); Z79.01 Long term (current) use of anticoagulants; Z79.82 Long term (current) use of aspirin; Z79.899 Other long term (current) drug therapy; Z87.891 Personal history of nicotine dependence; Z72.89 Other problems related to lifestyle; Z90.89 Acquired absence of other organs; Z95.4 Presence of other heart-valve replacement ==

== ENCOUNTER → 2020-09-28 | Outpatient (CLI) | payer OTHER, MEDICARE | LOC: SJCVC 12:16 | PROVIDERS: ATTEND Internal Medicine | DX: Z51.81 Encounter for therapeutic drug level monitoring (principal); G47.30 Sleep apnea, unspecified; I25.2 Old myocardial infarction; I10 Essential (primary) hypertension; E78.5 Hyperlipidemia, unspecified; Z79.01 Long term (current) use of anticoagulants; Z79.899 Other long term (current) drug therapy ==

== ENCOUNTER → 2020-10-03 | Outpatient (CLI) | payer OTHER, MEDICARE | LOC: SJCVCIMAG 07:38 | PROVIDERS: ATTEND Internal Medicine | DX: R94.31 Abnormal electrocardiogram [ECG] [EKG] (principal); I08.2 Rheumatic disorders of both aortic and tricuspid valves; R00.2 Palpitations; T82.857D Stenosis of other cardiac prosthetic devices, implants and grafts, subsequent encounter; I71.2 Thoracic aortic aneurysm, without rupture; I47.1 Supraventricular tachycardia; I10 Essential (primary) hypertension; E78.5 Hyperlipidemia, unspecified; I63.10 Cerebral infarction due to embolism of unspecified precerebral artery; G47.33 Obstructive sleep apnea (adult) (pediatric); Z79.01 Long term (current) use of anticoagulants; Z87.891 Personal history of nicotine dependence; Z72.89 Other problems related to lifestyle; Z79.82 Long term (current) use of aspirin; Z79.899 Other long term (current) drug therapy; Z86.73 Personal history of transient ischemic attack (TIA), and cerebral infarction without residual deficits; Y82.8 Other medical devices associated with adverse incidents ==

== ENCOUNTER → 2020-10-10 | Outpatient (CLI) | payer OTHER, MEDICARE | LOC: SJCVC 10:42 | PROVIDERS: ATTEND Internal Medicine | DX: Z51.81 Encounter for therapeutic drug level monitoring (principal); Z79.01 Long term (current) use of anticoagulants; Z79.82 Long term (current) use of aspirin; Z79.899 Other long term (current) drug therapy; Z87.891 Personal history of nicotine dependence; Z72.89 Other problems related to lifestyle ==

== ENCOUNTER → 2020-10-24 | Outpatient (CLI) | payer OTHER, MEDICARE | LOC: SJCVC 09:05 | PROVIDERS: ATTEND Internal Medicine | DX: Z51.81 Encounter for therapeutic drug level monitoring (principal); I10 Essential (primary) hypertension; G47.30 Sleep apnea, unspecified; I35.9 Nonrheumatic aortic valve disorder, unspecified; E78.5 Hyperlipidemia, unspecified; R60.9 Edema, unspecified; Z79.01 Long term (current) use of anticoagulants ==

== ENCOUNTER → 2020-11-23 | Outpatient (CLI) | payer OTHER, MEDICARE | LOC: SJCVC 10:40 | PROVIDERS: ATTEND Internal Medicine | DX: Z51.81 Encounter for therapeutic drug level monitoring (principal); Z79.01 Long term (current) use of anticoagulants; Z79.82 Long term (current) use of aspirin; Z79.899 Other long term (current) drug therapy ==

== ENCOUNTER → 2020-11-30 | Outpatient (CLI) | payer OTHER, MEDICARE | LOC: SJCVC 10:51 | PROVIDERS: ATTEND Internal Medicine | DX: Z51.81 Encounter for therapeutic drug level monitoring (principal); I10 Essential (primary) hypertension; E78.5 Hyperlipidemia, unspecified; Z68.23 Body mass index [BMI] 23.0-23.9, adult; Z95.2 Presence of prosthetic heart valve; Z79.82 Long term (current) use of aspirin; Z79.01 Long term (current) use of anticoagulants; Z79.899 Other long term (current) drug therapy ==

== ENCOUNTER → 2020-12-07 | Outpatient (CLI) | payer OTHER, MEDICARE | LOC: SJCVC 10:40 | PROVIDERS: ATTEND Internal Medicine | DX: Z51.81 Encounter for therapeutic drug level monitoring (principal); I35.9 Nonrheumatic aortic valve disorder, unspecified; I25.2 Old myocardial infarction; I10 Essential (primary) hypertension; Q21.1 Atrial septal defect; I47.1 Supraventricular tachycardia; E78.5 Hyperlipidemia, unspecified; Z79.01 Long term (current) use of anticoagulants ==

== ENCOUNTER → 2020-12-14 | Outpatient (CLI) | payer OTHER, MEDICARE | LOC: SJCVC 08:27 | PROVIDERS: ATTEND Internal Medicine | DX: Z51.81 Encounter for therapeutic drug level monitoring (principal); G47.33 Obstructive sleep apnea (adult) (pediatric); I10 Essential (primary) hypertension; I71.2 Thoracic aortic aneurysm, without rupture; I35.9 Nonrheumatic aortic valve disorder, unspecified; I47.1 Supraventricular tachycardia; Z86.73 Personal history of transient ischemic attack (TIA), and cerebral infarction without residual deficits; Z79.01 Long term (current) use of anticoagulants ==

== ENCOUNTER → 2020-12-28 | Outpatient (CLI) | payer OTHER, MEDICARE | LOC: SJCVC 09:10 | PROVIDERS: ATTEND Internal Medicine | DX: Z51.81 Encounter for therapeutic drug level monitoring (principal); G47.30 Sleep apnea, unspecified; I35.9 Nonrheumatic aortic valve disorder, unspecified; I10 Essential (primary) hypertension; I25.2 Old myocardial infarction; E78.5 Hyperlipidemia, unspecified; Z86.73 Personal history of transient ischemic attack (TIA), and cerebral infarction without residual deficits; Z95.2 Presence of prosthetic heart valve; Z79.01 Long term (current) use of anticoagulants ==

== ENCOUNTER → 2021-01-04 | Outpatient (CLI) | payer OTHER, MEDICARE | LOC: SJCVC 10:41 | PROVIDERS: ATTEND Internal Medicine | DX: Z51.81 Encounter for therapeutic drug level monitoring (principal); Z79.01 Long term (current) use of anticoagulants ==

== ENCOUNTER → 2021-01-18 | Outpatient (CLI) | payer OTHER, MEDICARE | LOC: SJCVC 10:46 | PROVIDERS: ATTEND Internal Medicine | DX: Z51.81 Encounter for therapeutic drug level monitoring (principal); I10 Essential (primary) hypertension; G47.30 Sleep apnea, unspecified; E78.5 Hyperlipidemia, unspecified; Z68.23 Body mass index [BMI] 23.0-23.9, adult; Z95.2 Presence of prosthetic heart valve; Z79.01 Long term (current) use of anticoagulants; Z79.899 Other long term (current) drug therapy; Z86.73 Personal history of transient ischemic attack (TIA), and cerebral infarction without residual deficits ==

== ENCOUNTER → 2021-02-15 | Outpatient (CLI) | payer OTHER, MEDICARE | LOC: SJCVC 10:52 | PROVIDERS: ATTEND Internal Medicine | DX: Z51.81 Encounter for therapeutic drug level monitoring (principal); I10 Essential (primary) hypertension; I47.1 Supraventricular tachycardia; E78.5 Hyperlipidemia, unspecified; G47.33 Obstructive sleep apnea (adult) (pediatric); Z82.49 Family history of ischemic heart disease and other diseases of the circulatory system; Z79.01 Long term (current) use of anticoagulants; Z79.82 Long term (current) use of aspirin; Z79.899 Other long term (current) drug therapy; Z72.89 Other problems related to lifestyle; Z87.891 Personal history of nicotine dependence ==

== ENCOUNTER → 2021-02-22 | Outpatient (CLI) | payer OTHER, MEDICARE | LOC: SJCVC 11:10 | PROVIDERS: ATTEND Internal Medicine | DX: Z51.81 Encounter for therapeutic drug level monitoring (principal); I10 Essential (primary) hypertension; G47.30 Sleep apnea, unspecified; E78.5 Hyperlipidemia, unspecified; Z79.82 Long term (current) use of aspirin; Z79.01 Long term (current) use of anticoagulants; Z79.899 Other long term (current) drug therapy; Z86.73 Personal history of transient ischemic attack (TIA), and cerebral infarction without residual deficits ==

== ENCOUNTER → 2021-03-01 | Outpatient (CLI) | payer OTHER, MEDICARE | LOC: SJCVC 10:52 | PROVIDERS: ATTEND Internal Medicine | DX: Z51.81 Encounter for therapeutic drug level monitoring (principal); G47.30 Sleep apnea, unspecified; I10 Essential (primary) hypertension; E78.5 Hyperlipidemia, unspecified; Z68.23 Body mass index [BMI] 23.0-23.9, adult; Z95.2 Presence of prosthetic heart valve; Z79.82 Long term (current) use of aspirin; Z79.01 Long term (current) use of anticoagulants; Z79.899 Other long term (current) drug therapy ==

== ENCOUNTER → 2021-03-12 | Outpatient (CLI) | payer OTHER, MEDICARE | LOC: SJCVC 11:03 | PROVIDERS: ATTEND Internal Medicine | DX: R94.31 Abnormal electrocardiogram [ECG] [EKG] (principal); T82.857D Stenosis of other cardiac prosthetic devices, implants and grafts, subsequent encounter; I71.2 Thoracic aortic aneurysm, without rupture; I47.1 Supraventricular tachycardia; I10 Essential (primary) hypertension; E78.5 Hyperlipidemia, unspecified; I63.10 Cerebral infarction due to embolism of unspecified precerebral artery; G47.33 Obstructive sleep apnea (adult) (pediatric); Z98.890 Other specified postprocedural states; Z95.2 Presence of prosthetic heart valve; Z79.01 Long term (current) use of anticoagulants; Z79.82 Long term (current) use of aspirin; Z79.899 Other long term (current) drug therapy; Z86.73 Personal history of transient ischemic attack (TIA), and cerebral infarction without residual deficits; Z87.891 Personal history of nicotine dependence; Z82.49 Family history of ischemic heart disease and other diseases of the circulatory system; Y83.8 Other surgical procedures as the cause of abnormal reaction of the patient, or of later complication, without mention of misadventure at the time of the procedure; Y71.2 Prosthetic and other implants, materials and accessory cardiovascular devices associated with adverse incidents ==

== ENCOUNTER → 2021-03-19 | Outpatient (CLI) | payer OTHER, MEDICARE | LOC: SJCVC 09:04 | PROVIDERS: ATTEND Internal Medicine | DX: Z51.81 Encounter for therapeutic drug level monitoring (principal); I10 Essential (primary) hypertension; G47.30 Sleep apnea, unspecified; E78.5 Hyperlipidemia, unspecified; Z79.01 Long term (current) use of anticoagulants ==

== ENCOUNTER → 2021-03-26 | Outpatient (CLI) | payer OTHER, MEDICARE | LOC: SJCVC 09:43 | PROVIDERS: ATTEND Internal Medicine | DX: Z51.81 Encounter for therapeutic drug level monitoring (principal); G47.30 Sleep apnea, unspecified; I10 Essential (primary) hypertension; Z95.2 Presence of prosthetic heart valve; Z79.01 Long term (current) use of anticoagulants ==

== ENCOUNTER → 2021-04-10 | Outpatient (CLI) | payer OTHER, MEDICARE | LOC: SJCVC 16:57 | PROVIDERS: ATTEND Internal Medicine | DX: Z51.81 Encounter for therapeutic drug level monitoring (principal); E78.5 Hyperlipidemia, unspecified; I10 Essential (primary) hypertension; Z79.01 Long term (current) use of anticoagulants; Z79.899 Other long term (current) drug therapy; Z79.82 Long term (current) use of aspirin; Z95.4 Presence of other heart-valve replacement; Z87.891 Personal history of nicotine dependence; Z72.89 Other problems related to lifestyle ==

== ENCOUNTER → 2021-05-08 | Outpatient (CLI) | payer OTHER, MEDICARE | LOC: SJCVC 10:22 | PROVIDERS: ATTEND Internal Medicine | DX: Z51.81 Encounter for therapeutic drug level monitoring (principal); I10 Essential (primary) hypertension; E78.5 Hyperlipidemia, unspecified; J30.2 Other seasonal allergic rhinitis; G47.30 Sleep apnea, unspecified; I63.40 Cerebral infarction due to embolism of unspecified cerebral artery; Q21.1 Atrial septal defect; I71.2 Thoracic aortic aneurysm, without rupture; Z86.79 Personal history of other diseases of the circulatory system; Z68.23 Body mass index [BMI] 23.0-23.9, adult; Z95.2 Presence of prosthetic heart valve; Z79.82 Long term (current) use of aspirin; Z79.899 Other long term (current) drug therapy; Z79.01 Long term (current) use of anticoagulants ==

== ENCOUNTER → 2021-05-11 | Outpatient (CLI) | payer OTHER, MEDICARE | LOC: SJCVC 09:56 | PROVIDERS: ATTEND Internal Medicine | DX: I10 Essential (primary) hypertension (principal); I35.9 Nonrheumatic aortic valve disorder, unspecified; Z95.0 Presence of cardiac pacemaker ==

== ENCOUNTER → 2021-05-14 | Outpatient (CLI) | payer OTHER, MEDICARE | LOC: SJCVC 09:42 | PROVIDERS: ATTEND Internal Medicine | DX: Z51.81 Encounter for therapeutic drug level monitoring (principal); Z79.01 Long term (current) use of anticoagulants; T82.857D Stenosis of other cardiac prosthetic devices, implants and grafts, subsequent encounter; E78.5 Hyperlipidemia, unspecified; H10.11 Acute atopic conjunctivitis, right eye; I63.19 Cerebral infarction due to embolism of other precerebral artery; H60.90 Unspecified otitis externa, unspecified ear; I47.1 Supraventricular tachycardia; I71.2 Thoracic aortic aneurysm, without rupture; I10 Essential (primary) hypertension; G47.30 Sleep apnea, unspecified; J30.2 Other seasonal allergic rhinitis; Z79.82 Long term (current) use of aspirin; Z79.899 Other long term (current) drug therapy ==

== ENCOUNTER → 2021-05-21 | Outpatient (CLI) | payer OTHER, MEDICARE | LOC: SJCVC 09:40 | PROVIDERS: ATTEND Internal Medicine | DX: Z51.81 Encounter for therapeutic drug level monitoring (principal); Z79.01 Long term (current) use of anticoagulants; Z79.82 Long term (current) use of aspirin; Z79.899 Other long term (current) drug therapy; I10 Essential (primary) hypertension; E78.5 Hyperlipidemia, unspecified; I71.2 Thoracic aortic aneurysm, without rupture; I63.10 Cerebral infarction due to embolism of unspecified precerebral artery; G47.33 Obstructive sleep apnea (adult) (pediatric); Z98.890 Other specified postprocedural states ==

== ENCOUNTER → 2021-05-31 | Outpatient (CLI) | payer OTHER, MEDICARE | LOC: SJCVC 10:15 | PROVIDERS: ATTEND Internal Medicine | DX: Z51.81 Encounter for therapeutic drug level monitoring (principal); Z79.01 Long term (current) use of anticoagulants; I10 Essential (primary) hypertension; I63.40 Cerebral infarction due to embolism of unspecified cerebral artery; I71.2 Thoracic aortic aneurysm, without rupture; I63.19 Cerebral infarction due to embolism of other precerebral artery; E78.5 Hyperlipidemia, unspecified; Z68.23 Body mass index [BMI] 23.0-23.9, adult; Z86.79 Personal history of other diseases of the circulatory system; J30.2 Other seasonal allergic rhinitis; Z79.82 Long term (current) use of aspirin; Z79.899 Other long term (current) drug therapy; G47.33 Obstructive sleep apnea (adult) (pediatric); Z95.2 Presence of prosthetic heart valve; Z98.890 Other specified postprocedural states ==

== ENCOUNTER → 2021-06-08 | Outpatient (CLI) | payer OTHER, MEDICARE | LOC: SJCVC 11:12 | PROVIDERS: ATTEND Internal Medicine | DX: Z51.81 Encounter for therapeutic drug level monitoring (principal); Z79.01 Long term (current) use of anticoagulants; I10 Essential (primary) hypertension; E78.5 Hyperlipidemia, unspecified; I71.2 Thoracic aortic aneurysm, without rupture; I63.19 Cerebral infarction due to embolism of other precerebral artery; Z68.23 Body mass index [BMI] 23.0-23.9, adult; Z79.82 Long term (current) use of aspirin; Z79.899 Other long term (current) drug therapy ==

== ENCOUNTER → 2021-06-18 | Outpatient (CLI) | payer OTHER, MEDICARE | LOC: SJCVC 10:32 | PROVIDERS: ATTEND Internal Medicine | DX: Z51.81 Encounter for therapeutic drug level monitoring (principal); Z79.01 Long term (current) use of anticoagulants ==

== ENCOUNTER → 2021-07-12 | Outpatient (CLI) | payer OTHER, MEDICARE | LOC: SJCVC 10:30 | PROVIDERS: ATTEND Internal Medicine | DX: Z51.81 Encounter for therapeutic drug level monitoring (principal); I10 Essential (primary) hypertension; E78.5 Hyperlipidemia, unspecified; G47.30 Sleep apnea, unspecified; Z79.01 Long term (current) use of anticoagulants; Z79.899 Other long term (current) drug therapy; Z79.82 Long term (current) use of aspirin; Z95.4 Presence of other heart-valve replacement; Z82.49 Family history of ischemic heart disease and other diseases of the circulatory system; Z87.891 Personal history of nicotine dependence; Z72.89 Other problems related to lifestyle ==

== ENCOUNTER → 2021-07-16 | Outpatient (CLI) | payer OTHER, MEDICARE | LOC: SJCVC 10:11 | PROVIDERS: ATTEND Internal Medicine | DX: Z51.81 Encounter for therapeutic drug level monitoring (principal); Z79.01 Long term (current) use of anticoagulants ==

== ENCOUNTER → 2021-07-30 | Outpatient (CLI) | payer OTHER, MEDICARE | LOC: SJCVC 10:39 | PROVIDERS: ATTEND Internal Medicine | DX: Z51.81 Encounter for therapeutic drug level monitoring (principal); Z79.01 Long term (current) use of anticoagulants ==

== ENCOUNTER → 2021-08-16 | Outpatient (CLI) | payer OTHER, MEDICARE | LOC: SJCVC 10:10 | PROVIDERS: ATTEND Internal Medicine | DX: Z51.81 Encounter for therapeutic drug level monitoring (principal); I10 Essential (primary) hypertension; G47.30 Sleep apnea, unspecified; E78.5 Hyperlipidemia, unspecified; Z79.01 Long term (current) use of anticoagulants; Z79.82 Long term (current) use of aspirin; Z79.899 Other long term (current) drug therapy; Z82.49 Family history of ischemic heart disease and other diseases of the circulatory system; Z95.0 Presence of cardiac pacemaker; Z87.891 Personal history of nicotine dependence ==

== ENCOUNTER → 2021-08-20 | Outpatient (CLI) | payer OTHER, MEDICARE | LOC: SJCVC 10:07 | PROVIDERS: ATTEND Internal Medicine | DX: Z51.81 Encounter for therapeutic drug level monitoring (principal); Z79.01 Long term (current) use of anticoagulants; Z79.899 Other long term (current) drug therapy ==

== ENCOUNTER → 2021-09-03 | Outpatient (CLI) | payer OTHER, MEDICARE | END | disposition home or self-care (01) | LOC: SJCVC 10:38 | PROVIDERS: ATTEND Internal Medicine | DX: Z51.81 Encounter for therapeutic drug level monitoring (principal); Z79.01 Long term (current) use of anticoagulants ==

== ENCOUNTER → 2021-09-10 | Outpatient (CLI) | payer OTHER, MEDICARE | LOC: SJCVC 16:04 | PROVIDERS: ATTEND Internal Medicine | DX: Z51.81 Encounter for therapeutic drug level monitoring (principal); Z79.01 Long term (current) use of anticoagulants ==

== ENCOUNTER 2021-09-11 15:54 | Emergency (ER) | payer OTHER, MEDICARE ==
[~2021-09-11] VITALS: Ht 160 cm; Wt 59.0 kg
[2021-09-11 16:28] LABS: URINE BILIRUBIN NEGATIVE (Negative); URINE BLOOD TRACE (Negative); URINE CLARITY CLEAR; URINE COLOR YELLOW; URINE GLUCOSE-RANDOM* NEGATIVE (Negative); URINE KETONES NEGATIVE (Negative); URINE LEUKOCYTES-REFLEX NEGATIVE (Negative); URINE NITRITE-REFLEX NEGATIVE (Negative); URINE PROTEIN (DIPSTICK) NEGATIVE (Negative); URINE UROBILINOGEN 0.2 E.U./dl (0.2-1.0)
[2021-09-11 17:02] LABS: ABSOLUTE NEUTROPHILS 6.7 thou/uL (1.4-8.2); BASOPHILS 0.6 % (0.0-2.0); EOSINOPHILS 1.7 % (0.0-3.0); HEMATOCRIT 40.3 % (42.0-52.0); HEMOGLOBIN 13.8 gm/dL (14.0-18.0); LYMPHOCYTES 3.1 % (24.0-44.0); MCH 33.9 pg (26.0-34.0); MCHC 34.3 g/dL (28.0-37.0); MONOCYTES 0.5 % (1.0-8.0); PLATELET COUNT 191 thou/uL (150-400); POLYS 94.1 % (36.0-66.0); RBC 4.07 mil/uL (4.50-6.00); RDW 14.6 % (10.5-14.5); WBC 7.1 thou/uL (4.0-11.0)
[2021-09-11 17:12] LABS: CALCIUM 8.5 mg/dL (8.5-10.1); CREATININE 0.6 mg/dL (0.7-1.3)
[2021-09-11 17:16] LABS: INR 2.2; POTASSIUM 5.3 mmol/L (3.5-5.1); PROTIME 23.1 Seconds (10.5-12.1)
[2021-09-11 17:23] LABS: ALBUMIN 3.8 g/dL (3.4-5.0); DIRECT BILIRUBIN 0.1 mg/dL (<0.1-0.2); MAGNESIUM 2.1 mg/dL (1.8-2.4); PHOSPHORUS 4.2 mg/dL (2.5-4.9); TOTAL BILIRUBIN 0.8 mg/dL (0.2-1.0); TOTAL PROTEIN 7.8 g/dL (6.4-8.2)
[2021-09-11 18:31] VITALS: BP 116/51
--- NOTE | 2021-09-12 07:17 | EKG ---
[facility] [address] [employer] [place] [address] ELECTROCARDIOGRAM REPORT Name: CHRISTO FLOWER [facility] [id number] Admission: 09/11/21 Attend Phys: Discharge: 09/11/21 Date of : 41 Report #: [id number] [facility] ED Test Date: 2021-09-11 Test Time: 17:10:17 Pat Name: CHRISTO FLOWER Department: Room: Gender: M Patient Centered Care Specialist: : 1945 Requested By: Gumaro Whiting Order Number: [id number] MD: Jens Hernandez Measurements Intervals [place] Rate: 86 P: -5 WV: 183 QRS: -27 QRSD: 75 T: 24 QT: 362 QTc: 433 Interpretive Statements Sinus rhythm Abnormal R-wave progression, late transition Left ventricular hypertrophy Inferior infarct, old Compared to ECG 08/28/2005 06:47:31 Left ventricular hypertrophy now present Myocardial infarct finding now present ST (T wave) deviation no longer present Electronically Signed On 09-12-2021 7:17:12 CABLE TESTER by Jens Hernandez [email or web address] <ELECTRONICALLY SIGNED> By: Jens Hernandez MD, [facility] 09/12/21 07 09 09 Jens Hernandez MD, [facility] /EPI
== END 2021-09-11 18:31 | disposition home or self-care (01) ==
LOC: ER 15:54
PROVIDERS: Emergency Medicine
DX: R25.1 Tremor, unspecified (principal); E86.0 Dehydration; E87.5 Hyperkalemia; I10 Essential (primary) hypertension; E78.00 Pure hypercholesterolemia, unspecified; Z98.890 Other specified postprocedural states; Z85.828 Personal history of other malignant neoplasm of skin; Z79.82 Long term (current) use of aspirin; Z79.891 Long term (current) use of opiate analgesic; Z79.899 Other long term (current) drug therapy; Z87.891 Personal history of nicotine dependence

== ENCOUNTER → 2021-09-13 | Outpatient (CLI) | payer OTHER, MEDICARE | LOC: SJCVCIMAG | PROVIDERS: ATTEND Internal Medicine | DX: I08.3 Combined rheumatic disorders of mitral, aortic and tricuspid valves (principal); I71.2 Thoracic aortic aneurysm, without rupture; I10 Essential (primary) hypertension; I48.0 Paroxysmal atrial fibrillation; E78.5 Hyperlipidemia, unspecified; I63.19 Cerebral infarction due to embolism of other precerebral artery; G47.33 Obstructive sleep apnea (adult) (pediatric); Z95.4 Presence of other heart-valve replacement; Z79.01 Long term (current) use of anticoagulants; Z87.891 Personal history of nicotine dependence; Z72.89 Other problems related to lifestyle; Z79.82 Long term (current) use of aspirin; Z79.899 Other long term (current) drug therapy; Z82.49 Family history of ischemic heart disease and other diseases of the circulatory system; Z51.81 Encounter for therapeutic drug level monitoring ==